=== PATIENT | male | born 1995 | race Caucasian/White ===

== ENCOUNTER 2018-08-20 18:34 | Emergency (ER) | payer MEDICAID ==
[~2018-08-20] VITALS: Ht 165.1 cm; Wt 62.8 kg
[2018-08-20 18:37] VITALS: Ht 165.1 cm; Wt 62.8 kg
[2018-08-20] MEDS ORDERED: LIDOCAINE 1% (MPF) 5 ML VIAL INJ ONE (19:00)
[2018-08-20] MEDS ORDERED: HYDROCODONE/APAP (5/325) TAB PO ONE (19:00)
[2018-08-20] MEDS ORDERED: DIPHTH/TET/ACEL PERTUSS (ADULT) 0.5 ML VIAL IM* ONE (19:00)
[2018-08-20] MEDS ORDERED: NAPR-985 PO (20:35)
[2018-08-20 21:00] VITALS: BP 116/69; PULSE 61; RESP 20
--- NOTE | 2018-08-20 21:41 | ERD ---
"ER Documentation Chief Complaint Chief Complaint Laceration to R knee from today HPI 3-year-old male presents with a laceration to his right knee. He does not recall his last tetanus shot. He states he has no pain and has not taken medications for symptoms. Denies other medical problems. NKDA. Surgical history denies. Social history denies2 ROS All systems reviewed and are negative except as per history of present illness. Medications Home Meds Active Scripts Naproxen* (Naprosyn*) 500 Mg Tablet, 500 MG PO BID PRN for PAIN AND/OR INFLAMMATION, #30 TAB Prov:OREN MCINTYRE PA-C 08/20/18 Allergies Allergies: Coded Allergies: No Known Allergy (Unverified , 08/20/18) PMhx/Soc Medical and Surgical Hx: pt denies Medical Hx, pt denies Surgical Hx History of Surgery: No Anesthesia Reaction: No Hx Neurological Disorder: No Hx Respiratory Disorders: No Hx Cardiac Disorders: No Hx Psychiatric Problems: No Hx Miscellaneous Medical Probl: No Hx Alcohol Use: No Hx Substance Use: No Hx Tobacco Use: No Smoking Status: Never smoker FmHx Family History: No diabetes, No coronary disease, No other Physical Exam Vitals Vital Signs Date Temp Pulse Resp B/P (MAP) Pulse Ox O2 O2 Flow FiO2 Time Delivery Rate 08/20/18 98.2 61 20 116/69 100 Room Air 21:00 (85) 08/20/18 99.1 61 16 128/65 100 18:37 (86) Physical Exam GENERAL: The patient is well-appearing, well-nourished, in no acute distress CHEST: Clear to auscultation bilaterally. There are no rales, wheezes or rhonchi. HEART: Regular rate and rhythm. No murmurs, clicks, rubs or gallops. EXTREMITIES: Equal pulses bilaterally. There is no peripheral clubbing, cyanosis or edema. No focal swelling or erythema. Full range of motion. Grossly neurovascularly intact. NEUROLOGIC: Alert and oriented. Cranial nerves II through XII intact. Motor strength in all 4 extremities with 5 out of 5 strength. Sensation grossly intac t. Normal speech and gait. SKIN: 3 cm linear laceration noted to the right knee. Results 24 hrs Current Medications Medications Dose Sig/Howard Start Time Status Last (Trade) Ordered Route PRN Stop Time Admin Dose Reason Admin Diphtheria/ 0.5 ml ONCE ONCE 08/20/18 DC 08/20/18 Tetanus/Acell IM* 19:00 19:28 Pertussis 08/20/18 19:01 (Adacel) Lidocaine 5 ml ONCE ONCE 08/20/18 DC 08/20/18 (Xylocaine INJ 19:00 19:27 1% (Mpf)) 08/20/18 19:01 1 tab ONCE ONCE 08/20/18 DC 08/20/18 Acetaminophen PO 19:00 19:26 / 08/20/18 19:01 Hydrocodone Bitart (Howland (5/325)) Procedures/MDM v DIAGNOSTIC IMAGING REPORT Patient: GILLIAN REGALADO : 1995 Age: 23 Sex: M MR #: [id number] DOS: 08/20/18 1859 Ordering MD: CHEY MCINTYRE PA-C Location: [facility] Room/Bed: PROCEDURE: XR Knee. CLINICAL INDICATION: Knee pain. TECHNIQUE: AP, lateral, and oblique view of the right knee were obtained. COMPARISON: There are no similar studies submitted for comparison. FINDINGS: There is normal mineralization. There is no acute fracture or dislocation. No destructive lesion is identified. The medial joint space is within normal limits. The lateral joint space is within normal limits. The patellofemoral joint is within normal limits. There is no joint effusion. IMPRESSION: No fracture or dislocation. Further findings as detailed above. ER Course: Tdap given the ED. Wound cleaned and laceration repaired. Akshat wrap applied after laceration was closed. Laceration Repair by me: Anesthesia: 1% lidocaine locally Location: Right knee Tendon/Joint/Nerves: No injury Foreign body: None detected after copious irrigation and exploration Technique: Two 5-0 Vicryl buried stitches. Five 4-0 nylon simple Interrupted Sutures Complexity: No subcutaneous sutures/mucosal repair/edge excision Post Closure Length: 3 cm Patient's bleeding was easily controlled in the department and there is no indication of anemia. No evidence of compartment syndrome, neurologic injury, vascular injury, open joint, tendon laceration, or foreign body. Patient is appropriate for outpatient follow up. 48 hour wound check. Scar minimization instructions given. MDM: 23-year-old male presenting with laceration to right knee. I have low suspicion for acute fracture dislocation. I have low suspicion for tendon or ligament rupture. Patient was discharged with pain medication. Patient is told symptoms change or worsen to return immediately to the ER. Patient is recommended to have sutures removed within 7 days and have a wound check in 2 days. All questions answered at discharge Departure Diagnosis: Primary Impression: Laceration Condition: Stable Patient Instructions: Laceration, All Referrals: [facility] YOU HAVE RECEIVED A MEDICAL SCREENING EXAM AND THE RESULTS INDICATE THAT YOU DO NOT HAVE A CONDITION THAT REQUIRES URGENT TREATMENT IN THE EMERGENCY DEPARTMENT. FURTHER EVALUATION AND TREATMENT OF YOUR CONDITION CAN WAIT UNTIL YOU ARE SEEN IN YOUR DOCTORS OFFICE WITHIN THE NEXT 1-2 DAYS. IT IS YOUR RESPONSIBILITY TO MAKE AN APPOINTMENT FOR [facility]. IF YOU HAVE A PRIMARY DOCTOR --you should call your primary doctor and schedule an appointment IF YOU DO NOT HAVE A PRIMARY DOCTOR YOU CAN CALL OUR PHYSICIAN REFERRAL HOTLINE AT IF YOU CAN NOT AFFORD TO SEE A PHYSICIAN YOU CAN CHOSE FROM THE FOLLOWING [facility] CL[facility] [address] [facility]. [facility] [address] [employer] | Anywhere [facility]. [facility] [address] [facility] [address] [facility] [address] [facility]. [facility]. [address] Additional Instructions: FOLLOW UP WITH YOUR PRIMARY CARE PHYSICIAN TOMORROW.Return to this facility if you are not improving as expected. OREN MCINTYRE PA-C Aug 20, 2018 21:41"
== END 2018-08-20 21:13 | disposition home or self-care (01) ==
LOC: FTE 18:34
DX: S81.011A Laceration without foreign body, right knee, initial encounter (principal); X58.XXXA Exposure to other specified factors, initial encounter; Y92.9 Unspecified place or not applicable; Z23 Encounter for immunization
CPT/HCPCS: 12002; 73562; 90471; 90715; Z7502; Z7610

== ENCOUNTER 2018-08-27 09:30 | Emergency (ER) | payer MEDICAID ==
[~2018-08-27] VITALS: Ht 170.2 cm; Wt 64.2 kg
[~2018-08-27 09:30] MED LIST: NAPR-985 PO
[2018-08-27 09:35] VITALS: BP 129/65; PULSE 56; RESP 18; Ht 170.2 cm; Wt 64.2 kg
--- NOTE | 2018-08-27 09:58 | ERD ---
ER Documentation Chief Complaint Chief Complaint suture removal R.knee HPI 23-year-old male presents to the emergency department for suture removal of the right knee. Sutures were placed approximately 6 days ago. The patient denies any fevers, chills, discharge, significant redness, severe pain, or other symptoms at this time. ROS All systems reviewed and are negative except as per history of present illness. Medications Home Meds Active Scripts Naproxen* (Naprosyn*) 500 Mg Tablet, 500 MG PO BID PRN for PAIN AND/OR INFLAMMATION, #30 TAB Prov:OREN MCINTYRE PA-C 08/20/18 Allergies Allergies: Coded Allergies: No Known Allergy (Unverified , 08/20/18) PMhx/Soc Medical and Surgical Hx: pt denies Medical Hx History of Surgery: No Anesthesia Reaction: No Hx Neurological Disorder: No Hx Respiratory Disorders: No Hx Cardiac Disorders: No Hx Psychiatric Problems: No Hx Miscellaneous Medical Probl: No Hx Alcohol Use: No Hx Substance Use: No Hx Tobacco Use: No FmHx Family History: No diabetes Physical Exam Vitals Vital Signs Date Temp Pulse Resp B/P (MAP) Pulse Ox O2 O2 Flow FiO2 Time Delivery Rate 08/27/18 98.0 56 18 129/65 99 09:35 (86) Physical Exam Const: No acute distress Head: Atraumatic Eyes: Normal Conjunctiva ENT: Normal External Ears, Nose and Mouth. Neck: Full range of motion. No meningismus. Resp: No respiratory distress. Skin: No petechiae or rashes Ext: [address] over healing laceration of the right anterior knee. No surrounding erythema. No discharge. Neur: Awake and alert Psych: Normal Mood and Affect Procedures/MDM Suture Removal by me: Sutures removed with tweezers and scissors without incident. Wound shows no evidence of infection, foreign body, neurologic injury, vascular injury, open joint or tendon laceration. Patient to follow up PRN. Departure Diagnosis: Primary Impression: Encounter for removal of sutures Condition: Fair Patient Instructions: Suture Removal, No Complication Additional Instructions: Llame al doctor MAANA y mya giovanna YOHANNES PARA DENTRO DE 1-2 CAMEJO.Dgale a la secretaria que nosotros le instruimos hacer esta yohannes.Avise o llame si cagle condicin se empeora antes de la yohannes. Regresa aqui si peor o no mejor. ANITA DE LA CRUZ PA-C Aug 27, 2018 09:58
== END 2018-08-27 10:39 | disposition home or self-care (01) ==
LOC: FTE 09:30
DX: Z48.02 Encounter for removal of sutures (principal)
CPT/HCPCS: 99281